=== PATIENT | female | born 1985 | race Caucasian/White ===

== ENCOUNTER 2022-12-15 20:38 | Emergency (ER) | payer MEDICARE, MEDICAID, SELFPAY ==
[2022-12-15 20:41] VITALS: BP 111/86; PULSE 96; RESP 18; TEMP 37; O2SAT 100; BMI 18.5
--- NOTE | 2022-12-15 20:57 | XR_ITS ---
The [address] [address] Patient Name: ALEX CATHERINE MRN: [id number] date: 1985 Sex: F Assigned Patient Location: ER Current Patient Location: ER Accession/Order Number: [id number] Exam Date: 12/15/2022 21:45 Report Date: 12/15/2022 22:00 At the request of: PRANAV GUNN Procedure: XR chest 1V EXAMINATION: XR chest 1V HISTORY: Cough COMPARISON: None. TECHNIQUE: Portable chest FINDINGS: IMPRESSION: Small left pleural effusion and adjacent consolidation. Right-sided central venous access port. No pneumothorax. The cardiac, mediastinal and hilar contours are normal. The visualized osseous structures exhibit no gross abnormality. Electronically authenticated by: JESSY NGUYEN Date: 12/15/2022 22:00
--- NOTE | 2022-12-15 20:58 | ED_ITS ---
HPI - URI/Sore Throat General Chief Complaint: Upper Respiratory Infection Stated Complaint: FEVER, URTI Time Seen by Provider: 12/15/22 20:48 Source: patient History of Present Illness HPI Narrative: 37-year-old female presents for a cough. She's had it for a few days and she's been coughing up thick green phlegm. She had some left over amoxicillin at home and has been taking it but hasn't been getting better. She went to an urgent care and they told her to go to the Emergency Room because she probably needs some IV antibiotics. She is a transplant patient, bone marrow for leukemia. She has chronic pfdks-hksdsd-vjog issues and is monitored for that issue by her oncologist. No hemoptysis. No vomiting. She's been wheezing at home. Related Data Home Medications Medication Instructions Recorded Confirmed acyclovir 400 mg tablet 400 mg PO DAILY 12/15/22 12/15/22 albuterol sulfate 90 mcg/actuation inhalation 12/15/22 aerosol inhaler (Ventolin HFA) apixaban 2.5 mg tablet (Eliquis) mg 12/15/22 aspirin 81 mg capsule 81 mg PO DAILY 12/15/22 12/15/22 belumosudil 200 mg tablet 200 mg PO DAILY 12/15/22 12/15/22 (Rezurock) buprenorphine HCl 2 mg sublingual mg sublingual 12/15/22 tablet cyclobenzaprine 5 mg tablet mg 12/15/22 doxepin 10 mg/mL oral concentrate mg 12/15/22 ferrous sulfate 325 mg (65 mg 325 mg PO DAILY 12/15/22 12/15/22 iron) tablet (Feosol) gabapentin 400 mg capsule 400 mg PO DAILY 12/15/22 12/15/22 hydromorphone 4 mg tablet mg 12/15/22 hydroxyzine HCl 25 mg tablet mg 12/15/22 lactulose 10 gram/15 mL oral 12/15/22 solution naloxone 4 mg/actuation nasal spray intranasal 12/15/22 pantoprazole 40 mg tablet,delayed mg PO 12/15/22 release potassium chloride 20 mEq meq PO 12/15/22 tablet,extended release(part/cryst) prednisone 10 mg tablet 5 mg PO DAILY 12/15/22 12/15/22 quetiapine 25 mg tablet mg 12/15/22 torsemide 20 mg tablet 10 mg PO DAILY 12/15/22 12/15/22 venlafaxine 50 mg tablet mg 12/15/22 voriconazole 200 mg tablet (Vfend) 200 mg PO DAILY 12/15/22 12/15/22 Previous Rx's Medication Instructions Recorded azithromycin 250 mg tablet See Rx Instructions PO .COMPLEX #6 12/15/22 (Zithromax Z-Ryan) tabs codeine 10 mg-guaifenesin 100 mg/5 5 ml PO Q6H PRN cough 10 days #120 12/15/22 mL oral liquid mL Allergies Allergy/AdvReac Type Severity Reaction Status Date / Time metoclopramide [From Reglan] Allergy Verified 12/15/22 20:46 morphine Allergy Verified 12/15/22 20:46 prochlorperazine Allergy Verified 12/15/22 20:46 [From Compazine] Review of Systems ROS Narrative A ten point review of systems is negative except as noted above. PFSH PFSH Social History Smoking status: Never smoker Exam Narrative Exam Narrative: Nurses note and vital signs reviewed and patient is not hypoxic. General: The patient appears well and in no apparent distress. Patient is resting comfortably on cart. Skin: Warm, dry, no pallor noted. There is no rash noted. Head: Normocephalic, atraumatic Eye: Normal conjunctiva, no drainage Ears, Nose, Mouth, and Throat: oral mucosa is moist. Nares patent. Cardiovascular: Regular Rate and Rhythm Respiratory: bilateral rhonchi present. Breath sounds are equal. Back: non-tender GI: soft and nontender Musculoskeletal: The patient has no evidence of calf tenderness, no pitting edema, symmetrical pulses noted bilaterally Neurological: A&O, normal speech Psychiatric: Cooperative Constitutional Vital Signs, click to edit/add: Last Vital Signs Temp 98.6 F 12/15/22 20:41 Pulse 89 12/15/22 21:32 Resp 20 12/15/22 21:32 BP 111/86 12/15/22 20:41 Pulse Ox 97 12/15/22 21:32 O2 Del Method Room Air 12/15/22 21:32 Course Vital Signs Vital signs: Vital Signs Temperature 98.6 F 12/15/22 20:41 Pulse Rate 96 H 12/15/22 20:41 Respiratory Rate 18 12/15/22 20:41 Blood Pressure 111/86 12/15/22 20:41 Pulse Oximetry 100 12/15/22 20:41 Oxygen Delivery Method Room Air 12/15/22 20:41 Temperature 98.6 F 12/15/22 20:41 Pulse Rate 89 12/15/22 21:32 Respiratory Rate 20 12/15/22 21:32 Blood Pressure 111/86 12/15/22 20:41 Pulse Oximetry 97 12/15/22 21:32 Oxygen Delivery Method Room Air 12/15/22 21:32 MDM - URI/Sore Throat MDM Narrative Medical decision making narrative: left lower lobe pneumonia with a small effusion is identified. Her vital signs are appropriate and she doesn't require admission the hospital. Bloodwork nonspecific. Hemoglobin is 8.9 which is improved for her according to the patient. She has been on hydroxyzine but hasn't taken it for two weeks and will take it for the next ten days. She has a doctor's appointment on , , and will keep that appointment. Differential Diagnosis Differential diagnosis: Likely upper respiratory infection, viral infection and other (pneumonia) Lab Data Attestation: I reviewed the patient's lab results. Labs: Lab Results 12/15/22 Range/Units 21:20 WBC 14.7 H (4.0-11.0) 10^3/uL RBC 3.58 L (4.20-5.40) 10^6/uL Hgb 8.9 L (12.0-16.0) g/dL Hct 28.2 L (36.0-48.0) % MCV 78.8 L (81.0-99.0) fL MCH 24.9 L (26.7-34.0) pg MCHC 31.6 (29.9-35.2) g/dL RDW 15.6 H (11.0-15.0) % Plt Count 675 H (150-450) 10^3/uL MPV 9.3 L (9.5-13.5) fL Neut % (Auto) 69.9 (43.0-75.0) % Lymph % (Auto) 18.0 L (20.5-60.0) % [place] % (Auto) 10.1 (1.7-12.0) % Eos % (Auto) 1.4 (0.9-7.0) % Baso % (Auto) 0.3 (0.2-2.0) % Neut # (Auto) 10.3 H (1.4-6.5) 10^3/uL Lymph # (Auto) 2.7 (1.2-3.8) 10^3/uL [place] # (Auto) 1.5 H (0.3-0.8) 10^3/uL Eos # (Auto) 0.2 (0.0-0.7) 10^3/uL Baso # (Auto) 0.1 (0.0-0.1) 10^3/uL Abs Immat Gran (auto) 0.05 H (0.00-0.03) 10^3/uL Imm/Tot Granulo (auto) 0.3 (0.0-0.5) % Sodium 132 L (136-145) mmol/L Potassium 3.7 (3.5-5.1) mmol/L Chloride 99 (98-107) mmol/L Carbon Dioxide 25.7 (21.0-32.0) mmol/L Anion Gap 11.0 BUN 8.0 (7.0-18.0) mg/dL Creatinine 0.82 (0.55-1.02) mg/dL Est GFR ( Amer) >60 (>=60) Est GFR (Non-Af Amer) >60 (>=60) BUN/Creatinine Ratio 9.8 Glucose 105 (74-106) mg/dL Calcium 8.3 L (8.5-10.1) mg/dL Imaging Data Chest x-ray: Radiologist's impression: Procedure: XR chest 1V EXAMINATION: XR chest 1V HISTORY: Cough COMPARISON: None. TECHNIQUE: Portable chest FINDINGS: IMPRESSION: Small left pleural effusion and adjacent consolidation. Right-sided central venous access port. No pneumothorax. The cardiac, mediastinal and hilar contours are normal. The visualized osseous structures exhibit no gross abnormality. Electronically authenticated by: JESSY NGUYEN Date: 12/15/2022 22:00 Discharge Plan Discharge Chief Complaint: Upper Respiratory Infection Clinical Impression: Pneumonia Patient Disposition: Home, Self-Care Time of Disposition Decision: 22:12 Condition: Good Mode of Transportation: Private Vehicle Prescriptions / Home Meds: New azithromycin [Zithromax Z-Ryan] 250 mg tablet See Rx Instructions .ROUTE .COMPLEX Qty: 6 0RF Rx Instructions: For 250 mg dose pack: take 500 mg today (day 1), then 250 mg for 4 days (days 2-5) codeine-guaifenesin 10-100 mg/5 mL liquid 5 ml PO Q6H PRN (Reason: cough) 10 Days Qty: 120 0RF No Action hydroxyzine HCl 25 mg tablet hydromorphone 4 mg tablet buprenorphine HCl 2 mg tablet, sublingual SUBLINGUAL cyclobenzaprine 5 mg tablet ferrous sulfate [Feosol] 325 mg (65 mg iron) tablet 325 mg PO DAILY pantoprazole 40 mg tablet,delayed release (DR/EC) PO albuterol sulfate [Ventolin HFA] 90 mcg/actuation HFA aerosol inhaler INHALATION Eliquis 2.5 mg tablet Rezurock 200 mg tablet 200 mg PO DAILY prednisone 10 mg tablet 5 mg PO DAILY quetiapine 25 mg tablet venlafaxine 50 mg tablet naloxone 4 mg/actuation spray,non-aerosol INTRANASAL voriconazole [Vfend] 200 mg tablet 200 mg PO DAILY Rx Instructions: administer on empty stomach, at least 1 hour before or after meal(s) potassium chloride 20 mEq tablet,ER particles/crystals PO doxepin 10 mg/mL concentrate lactulose 10 gram/15 mL solution aspirin 81 mg capsule 81 mg PO DAILY torsemide 20 mg tablet 10 mg PO DAILY gabapentin 400 mg capsule 400 mg PO DAILY acyclovir 400 mg tablet 400 mg PO DAILY Instructions: Pneumonia (ED) Additional Instructions: talk to your doctor at your appointment on do not take hydroxyzine for ten days Stand Alone Forms: Portal Instructions Referrals: Physician,Non-Staff, MD [Primary Care Provider] - 1 week
[2022-12-15 21:22] VITALS: PULSE 87; RESP 18; O2SAT 95
[2022-12-15] MEDS: ALBUTEROL SULFATE 2.5 MG/3 ML VIAL NEB IH (21:22)
[2022-12-15 21:27] VITALS: O2SAT 99
[2022-12-15 21:30] LABS: Basophils Absolute Auto 0.1 10^3/uL (0.0-0.1); Basophils Percent Auto 0.3 % (0.2-2.0); Eosinophils Absolute Auto 0.2 10^3/uL (0.0-0.7); Eosinophils Percent Auto 1.4 % (0.9-7.0); Hematocrit 28.2 % (36.0-48.0); Hemoglobin 8.9 g/dL (12.0-16.0); Immature Granulocytes Abs Auto 0.05 10^3/uL (0.00-0.03); Immature Granulocytes Pct Auto 0.3 % (0.0-0.5); Lymphocytes Absolute Auto 2.7 10^3/uL (1.2-3.8); Mean Corpuscular HGB Conc 31.6 g/dL (29.9-35.2); Mean Corpuscular Hemoglobin 24.9 pg (26.7-34.0); Mean Corpuscular Volume 78.8 fL (81.0-99.0); Mean Platelet Volume 9.3 fL (9.5-13.5); Monocytes Absolute Auto 1.5 10^3/uL (0.3-0.8); Monocytes Percent Auto 10.1 % (1.7-12.0); Neutrophils Absolute Auto 10.3 10^3/uL (1.4-6.5); Neutrophils Percent Auto 69.9 % (43.0-75.0); Platelet Count 675 10^3/uL (150-450); Red Blood Count 3.58 10^6/uL (4.20-5.40); Red Cell Distribution Width 15.6 % (11.0-15.0); White Blood Count 14.7 10^3/uL (4.0-11.0)
[2022-12-15 21:32] VITALS: PULSE 89; RESP 20; O2SAT 97
[2022-12-15 21:43] LABS: BUN Creatinine Ratio 9.8; Calcium 8.3 mg/dL (8.5-10.1); Carbon Dioxide 25.7 mmol/L (21.0-32.0); Chloride 99 mmol/L (98-107); Estimated GFR (African America >60 (>=60); Estimated GFR (Non-African Ame >60 (>=60); Glucose 105 mg/dL (74-106); Potassium 3.7 mmol/L (3.5-5.1); Sodium 132 mmol/L (136-145)
[2022-12-15] MEDS: AZITHROMYCIN 500 MG in 0.9 % SODIUM CHLORIDE 250 ML 250 MG IV (22:30)
== END 2022-12-15 23:48 | disposition home or self-care (01) ==
PROVIDERS: Emergency Provider Emergency Medicine
DX: J18.9 Pneumonia, unspecified organism (principal); T86.00 Unspecified complication of bone marrow transplant; D89.811 Chronic graft-versus-host disease; Z85.6 Personal history of leukemia; Z79.01 Long term (current) use of anticoagulants; Z79.899 Other long term (current) drug therapy
CPT/HCPCS: 36415; 36591; 71045; 80048; 85025; 94640; 96365; 99285; J0456

== ENCOUNTER 2023-02-15 16:52 | Emergency (ER) | payer MEDICARE, MEDICAID, SELFPAY ==
[2023-02-15 17:06] VITALS: BP 94/55; PULSE 129; RESP 18; TEMP 38.1; O2SAT 99; BMI 19.5
[2023-02-15 17:50] LABS: Hematocrit 32.5 % (36.0-48.0); Hemoglobin 10.2 g/dL (12.0-16.0); Mean Corpuscular HGB Conc 31.4 g/dL (29.9-35.2); Mean Corpuscular Volume 76.5 fL (81.0-99.0); Mean Platelet Volume 10.2 fL (9.5-13.5); Platelet Count 287 10^3/uL (150-450); Red Blood Count 4.25 10^6/uL (4.20-5.40); Red Cell Distribution Width 18.1 % (11.0-15.0); White Blood Count 4.4 10^3/uL (4.0-11.0)
[2023-02-15] MEDS: ONDANSETRON PF 4 MG/2 ML VIAL IV (17:54)
[2023-02-15] MEDS: 0.9 % SODIUM CHLORIDE 1,000 ML 999 ML IV (18:00)
[2023-02-15 18:07] LABS: Alanine Aminotransferase 115 U/L (14-59); Albumin Globulin Ratio 0.7; Albumin Level 2.6 g/dL (3.4-5.0); Alkaline Phosphatase 226 U/L (46-116); Anion Gap 22.1; Aspartate Amino Transferase 129 U/L (15-37); BUN Creatinine Ratio 20.7; Bilirubin Total 2.2 mg/dL (0.2-1.0); Calcium 8.6 mg/dL (8.5-10.1); Carbon Dioxide 18.5 mmol/L (21.0-32.0); Chloride 101 mmol/L (98-107); Estimated GFR (African America 39 (>=60); Estimated GFR (Non-African Ame 32 (>=60); Globulin 3.9 g/dL; Glucose 92 mg/dL (74-106); Potassium 3.6 mmol/L (3.5-5.1); Sodium 138 mmol/L (136-145); Total Protein 6.5 g/dL (6.4-8.2)
[2023-02-15 18:20] LABS: Band Neutrophils Absolute 0.1 10^3/uL (0.0-0.3); Lymphocytes Absolute Manual 0.66 10^3/uL (1.20-3.80); Monocytes Absolute Manual 0.04 10^3/uL (0.30-0.80)
[2023-02-15 18:21] LABS: Anisocytosis 2+; Microcytosis 1+
[2023-02-15 18:57] LABS: Influenza Virus A Antigen Negative; Influenza Virus B Antigen Negative; Internal Control Within Normal Limits; SARS-CoV-2 Ag NEGATIVE (NEGATIVE)
[2023-02-15] MEDS: ACETAMINOPHEN 500 MG TABLET 1000 MG PO (19:09)
[2023-02-15] MEDS: ORPHENADRINE 60 MG/ 2 ML VIAL IV (19:10)
[2023-02-15] MEDS: KETOROLAC TROMETHAMINE 30 MG/ML VIAL IVP (19:10)
--- NOTE | 2023-02-15 19:54 | XR_ITS ---
The [address] [address] Patient Name: ALEX CATHERINE MRN: [id number] date: 1985 Sex: F Assigned Patient Location: ER Current Patient Location: ER Accession/Order Number: [id number] Exam Date: 02/15/2023 20:38 Report Date: 02/15/2023 20:53 At the request of: DENIS ARORA Procedure: XR chest 1V EXAM: XR chest 1V HISTORY: fever COMPARISON: Chest x-ray 12/15/2022 TECHNIQUE: Single AP radiograph of the chest FINDINGS: No pneumothorax, pleural effusion or consolidation. Linear opacities at the right lung base favored to represent atelectasis. Normal heart size. Port-A-Cath with tip projecting over the superior cavoatrial junction. No acute osseous abnormality. XR/XR chest 1V IMPRESSION: No acute cardiopulmonary process. Electronically authenticated by: CARLOS TEJEDA Date: 02/15/2023 20:53
--- NOTE | 2023-02-15 20:23 | PC.NURSE ---
labs and cultures drawn off of line along with sterile cap change.
[2023-02-15 20:28] VITALS: TEMP 38
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
[2023-02-15] MEDS: PREDNISONE 20 MG TABLET PO (21:50)
[2023-02-15] MEDS: CEFTRIAXONE 1,000 MG in 0.9 % SODIUM CHLORIDE 50 ML 100 MG IV (21:51)
[2023-02-15] MEDS: HYDROMORPHONE HCL 1 MG/ML CARTRIDGE IV (21:51)
[2023-02-15] MEDS: AZITHROMYCIN 500 MG in 0.9 % SODIUM CHLORIDE 250 ML 250 MG IV (21:52)
[2023-02-16] MEDS: HYDROMORPHONE HCL 1 MG/ML CARTRIDGE IVP (00:07)
[2023-02-16 14:48] LABS: SARS-CoV-2 NAA NOT DETECTED (NOT DETECTE)
[2023-02-19 23:36] LABS: A. calcoaceticus-baumannii Cpx NOT DETECTED (NOT DETECTE); Bacteroides fragilis NOT DETECTED (NOT DETECTE); Candida albicans NOT DETECTED (NOT DETECTE); Candida auris NOT DETECTED (NOT DETECTE); Candida glabrata NOT DETECTED (NOT DETECTE); Candida krusei NOT DETECTED (NOT DETECTE); Candida parapsilosis NOT DETECTED (NOT DETECTE); Candida tropicalis NOT DETECTED (NOT DETECTE); Cryptococcus neoformans/gattii NOT DETECTED (NOT DETECTE); Enterobacter cloacae complex NOT DETECTED (NOT DETECTE); Enterobacterales NOT DETECTED (NOT DETECTE); Enterococcus faecalis NOT DETECTED (NOT DETECTE); Enterococcus faecium NOT DETECTED (NOT DETECTE); Haemophilus influenzae NOT DETECTED (NOT DETECTE); Klebsiella aerogenes NOT DETECTED (NOT DETECTE); Klebsiella pneumoniae group NOT DETECTED (NOT DETECTE); Listeria monocytogenes NOT DETECTED (NOT DETECTE); Neisseria meningitidis NOT DETECTED (NOT DETECTE); Proteus spp. NOT DETECTED (NOT DETECTE); Pseudomonas aeruginosa NOT DETECTED (NOT DETECTE); Salmonella spp. NOT DETECTED (NOT DETECTE); Serratia marcescens NOT DETECTED (NOT DETECTE); Staphylococcus epidermidis NOT DETECTED (NOT DETECTE); Staphylococcus lugdunensis NOT DETECTED (NOT DETECTE); Staphylococcus spp. NOT DETECTED (NOT DETECTE); Stenotrophomonas maltophilia NOT DETECTED (NOT DETECTE); Streptococcus agalactiae NOT DETECTED (NOT DETECTE); Streptococcus pyogenes NOT DETECTED (NOT DETECTE)
[2023-02-20 00:01] LABS: Streptococcus spp. DETECTED (NOT DETECTE)
[2023-02-20 00:03] LABS: Streptococcus pneumoniae DETECTED (NOT DETECTE)
[2023-02-20 00:05] LABS: Source Blood
== END 2023-02-16 00:15 | disposition short-term general hospital (02) ==
PROVIDERS: Physician Assistant; Emergency Provider Emergency Medicine
DX: N17.9 Acute kidney failure, unspecified (principal); R53.1 Weakness; R50.9 Fever, unspecified; D89.811 Chronic graft-versus-host disease; Z94.81 Bone marrow transplant status; Z79.01 Long term (current) use of anticoagulants; Z79.82 Long term (current) use of aspirin; Z79.899 Other long term (current) drug therapy; Z20.822 Contact with and (suspected) exposure to COVID-19
CPT/HCPCS: 36415; 71045; 80053; 84703; 85027; 87040; 87150; 87186; 87635; 87804; 87811; 96361; 96365; 96366; 96368; 96375; 96376; 99285; J0456; J1170